=== PATIENT | female | born 1980 | race Hispanic/Latino ===

== ENCOUNTER 2016-11-24 16:31 | Emergency (ER) | payer OTHER ==
[~2016-11-24] VITALS: Ht 165.1 cm; Wt 81.6 kg
--- NOTE | 2016-11-24 16:51 | ED HEAD/FACIAL INJ COMPLAINT ---
History of Present Illness General Chief Complaint: Dizziness Stated Complaint: S/P FALL 15 MINUTES AGO. DIZZINESS/LAC TO R EYE Source: patient, old records Exam Limitations: no limitations Vital Signs & Intake/Output Vital Signs & Intake/Output Vital Signs Date Time Temp Pulse Resp B/P Pulse O2 O2 Flow FiO2 Ox Delivery Rate 11/24 1844 98.6 85 18 128/84 98 11/24 1634 97.4 80 18 137/82 99 Room Air Allergies Coded Allergies: Penicillins (ANAPHYLAXIS 09/17/16) erythromycin base (ANAPHYLAXIS 09/17/16) Reconcile Medications Cyclobenzaprine HCl 5 MG TABLET 1 TAB PO TIDPRN PRN pain Ibuprofen 800 MG TABLET 1 TAB PO TID PRN pain Triage Note: PT STATES THAT SHE WAS WALKING UP THE BASEMENT STAIRS AND THAT SHE TRIPPED AND HIT THE R SIDE OF HER FACE ON THE STEP, COMPLAINS OF PAIN TO R SIDE EYE AND R SIDE JAW PAIN Triage Nurses Notes Reviewed? yes Onset: Abrupt Severity: mild, moderate Severity Numbers: 5 Location: frontal Method of Injury: fall Loss of Consciousness: no loss of consciousness Associated Symptoms: denies : No Patient currently breastfeeds: No HPI: 36-year-old female presents to emergency room after she states she tripped while walking up her basement stairs sustaining abrasions to the right side of her face when she struck her head against the step. She now presents complaint right-sided facial pain. There is no loss of consciousness. She denies any neck or back pain. She states that she walked herself to the ER however is been feeling nauseous and dizzy. She is not taken anything for her symptoms. She denies any chest pain abdominal pain difficulty breathing no arm or leg pain no numbness or tingling. She denies any vomiting no vision changes. No dental trauma no epistaxis Past History Travel History Traveled to [place] past 21 day No Medical History Any Pertinent Medical History? 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 No Review of Systems Review of Systems Constitutional: Reports: see HPI. All Other Systems: Reviewed and Negative Comments Review of systems: See HPI, All other systems negative. Constitutional, no chills no fever, no malaise no weight loss HEENT: No visual changes no sore throat no congestion, no ear pain Cardiovascular: No chest pain , no palpitation Skin, no jaundice no rashes, no change in skin Respiratory: No dyspnea no cough no sputum GI: No nausea no vomiting, no diarrhea, no bloating/constipation : No dysuria Muscle skeletal: No joint pain, no joint swelling, no back pain, no neck pain, Neurologic: no headache Psych: No stress Heme/endocrine: No bruising no bleeding Immunology: No lymphadenopathy Physical Exam Physical Exam General Appearance: well developed/nourished, no apparent distress, alert, awake Cranial Nerves: normal hearing, normal speech, PERRL Comments: Well-developed well-nourished patient in no apparent distress. Head/Face: There are 2 superficial abrasions noted over the right lateral face, there is one that is approximately 2 cm long superficial oh active bleeding and a 0.5 cm superficial linear abrasion noted to the lateral right eyebrow. There is no ecchymosis or swelling no scalp hematoma, minimal tenderness over the right side of the patient's face no raccoon eyes no hernandez signs, no maxillary/ frontal sinus tenderness, no facial swelling Eyes: PERRL, EOMI, no conjunctival injection. No nystagmus no evidence of entrapment Ear:External auditory canal and Tympanic membranes clear, no erythema, no FB. No hemotympanum Nose: atraumatic.Normal inspection: No bleeding, no septal hematoma Throat: Moist mucous membranes.Pharynx normal. No dental trauma No swelling or edema. Neck: Supple, no lymphadenopathy, FROM Back: FROM, Nontender Cardiovascular: Regular rate and rhythms no murmurs rubs or gallops, Respiratory: Chest nontender.There were no bony deformities, no asymmetry. No respiratory distress. Patient speaking in full complete sentences. Breath sounds clear to auscultation bilaterally: NO W/R/R Extremities: full range of motion atraumatic Neuro: Alert and oriented x3 Skin: Warm & dry;No appreciable rash on exposed skin Psych: Mood affect normal, normal memory normal judgment. Progress Differential Diagnosis: c-spine injury, facial fracture, globe injury, ICH, orbit fracture, skull fracture Plan of Care: Orders Procedure Date/time Status Regular Diet 11/25 B Active HUMAN BETA HCG SCREEN 11/24 1659 Complete Laboratory Tests 11/24/16 1703: Total Beta HCG NEGATIVE Patient medicated with Tylenol and Zofran ODT, tetanus im ordered. Discussed the patient that there is nothing that I can suture given superficial abrasions they will heal on their own. Discussed with the patient her CAT scan results she is feeling better her prescription for Thursday Procrit and Flexeril were provided. They feel comfortable plan, patient is ambulatory with steady gait (MOHINI BEJARANO,IVONNE) Diagnostic Imaging: Viewed by Me: CT Scan. Discussed w/RAD: CT Scan. Radiology Impression: PATIENT: TARAN SHIRLEY PRESENT AGE: 36 PATIENT ACCOUNT NO: [id number] : 80 LOCATION: [facility] ORDERING PHYSICIAN: IVONNE BEJARANO SERVICE DATE: 11/24/16-1725 EXAM TYPE: CAT - CT HEAD WO IV CONTRAST; CT MAXILLOFACIAL W/O CON EXAMINATION: CT HEAD WITHOUT CONTRAST CT FACIAL BONES WITHOUT CONTRAST CLINICAL INFORMATION: 36-year- old woman with fall downstairs and right-sided pain. COMPARISON: None. TECHNIQUE : Imaging was performed from the skull base to vertex without intravenous administration of contrast. In addition, helical noncontrast CT imaging was acquired through the facial bones and source images were reviewed along with axial reconstructions and sagittal and coronal MPRs. DLP: 1395 mGy-cm FINDINGS: HEAD: No intracranial mass, hemorrhage, or midline shift is visualized. The ventricles and sulci are age-appropriate. No extra-axial collections are identified. FACIAL BONES: There is no evidence of an acute facial bone fracture. There is polypoid circumferential cortical thickening seen in the maxillary sinuses, mild on the right and moderate on the left. There is mild mucosal thickening in the ethmoid air cells as well. No significant dental disease is visualized. The orbits are unremarkable in appearance. IMPRESSION: No acute intracranial process or discrete facial bone fracture. DICTATED BY: LUIS MARIN MD DATE/TIME DICTATED:11/24/161824 LITHOGRAPHIC PHOTOGRAPHER:MAGALIE DATE/TIME TRANSCRIBED:11/24/161824 CONFIDENTIAL, DO NOT COPY WITHOUT APPROPRIATE AUTHORIZATION. <Electronically signed in Other Vendor System> SIGNED BY: LUIS MARIN MD 11/24/16 1832 Departure Departure Disposition: HOME OR SELF CARE Condition: Stable Clinical Impression Primary Impression: Minor head injury without loss of consciousness Referrals: PATIENT HAS NO PRIMARY CARE DR (PCP/Family) Additional Instructions: Rest ice and Tylenol Motrin as needed for pain. flexeril as discussed. follow up with your primary care physician or return with any concerns Departure Forms: Customer Survey General Discharge Information Prescriptions: Current Visit Scripts Ibuprofen 1 TAB PO TID PRN pain #30 TAB Cyclobenzaprine HCl 1 TAB PO TIDPRN PRN pain #12 TAB
[2016-11-24] MEDS ORDERED: IBUPROFEN800 M1 PO (18:08)
[2016-11-24] MEDS ORDERED: CYCLOBENZAPRINE5 M2 PO (18:08)
--- NOTE | 2016-11-24 18:32 | CT SCAN REPORT ---
EXAMINATION: CT HEAD WITHOUT CONTRAST CT FACIAL BONES WITHOUT CONTRAST CLINICAL INFORMATION: 36-year-old woman with fall downstairs and right-sided pain. COMPARISON: None. TECHNIQUE: Imaging was performed from the skull base to vertex without intravenous administration of contrast. In addition, helical noncontrast CT imaging was acquired through the facial bones and source images were reviewed along with axial reconstructions and sagittal and coronal MPRs. DLP: 1395 mGy-cm FINDINGS: HEAD: No intracranial mass, hemorrhage, or midline shift is visualized. The ventricles and sulci are age-appropriate. No extra-axial collections are identified. FACIAL BONES: There is no evidence of an acute facial bone fracture. There is polypoid circumferential cortical thickening seen in the maxillary sinuses, mild on the right and moderate on the left. There is mild mucosal thickening in the ethmoid air cells as well. No significant dental disease is visualized. The orbits are unremarkable in appearance. IMPRESSION: No acute intracranial process or discrete facial bone fracture.
[2016-11-24 18:44] VITALS: BP 128/84
== END 2016-11-24 18:44 ==
LOC: ERH 16:31
DX: S09.90XA Unspecified injury of head, initial encounter (principal); W18.09XA Striking against other object with subsequent fall, initial encounter
CPT/HCPCS: 90471; 90714; J3101

== ENCOUNTER 2016-11-25 18:22 | Emergency (ER) | payer OTHER ==
[~2016-11-25] VITALS: Ht 165.1 cm; Wt 81.6 kg
[~2016-11-25 18:22] MED LIST: CYCLOBENZAPRINE5 M2 PO; IBUPROFEN800 M1 PO
[2016-11-25 18:45] VITALS: BP 119/84
[2016-11-26] MEDS ORDERED: PROAIR HFA8.5 GM INH (08:35)
[2016-11-26] MEDS ORDERED: VICODIN 5-3001 EACH PO (08:59)
== END 2016-11-25 19:33 | disposition admitted as inpatient to this hospital (09) ==
LOC: ERH 18:22
DX: R51 Headache (principal); W19.XXXD Unspecified fall, subsequent encounter

== ENCOUNTER 2016-11-26 07:02 | Emergency (ER) | payer OTHER ==
[~2016-11-26] VITALS: Ht 162.6 cm; Wt 81.6 kg
--- NOTE | 2016-11-26 07:51 | ED NECK/BACK PAIN COMPLAINT ---
History of Present Illness General Chief Complaint: General Adult Stated Complaint: SUAZO/BACK&NECK PAIN Source: patient, old records Exam Limitations: no limitations Vital Signs & Intake/Output Vital Signs & Intake/Output Vital Signs Date Time Temp Pulse Resp B/P Pulse O2 O2 Flow FiO2 Ox Delivery Rate 11/26 0935 98.4 84 18 108/74 11/26 0709 98.6 94 20 137/97 98 Room Air Allergies Coded Allergies: Penicillins (ANAPHYLAXIS 11/25/16) erythromycin base (ANAPHYLAXIS 11/25/16) Reconcile Medications Albuterol Sulfate (Proair Hfa) 90 MCG HFA.AER.AD 2 PUF INH Q4-6 PRN PRN BREATHING (Reported) Cyclobenzaprine HCl 5 MG TABLET 1 TAB PO TIDPRN PRN pain Hydrocodone/Acetaminophen (Vicodin 5-300 MG Tablet) 5 MG-300 MG TABLET 1 TAB PO BID PRN PAIN Ibuprofen 800 MG TABLET 1 TAB PO TID PRN pain Triage Note: PT STATES SHE FELL 2 DAYS AGO AND CAME HERE AND WAS TOLD SHE HAS A CONCUSSION. PT STATES SHE HAS PAIN IN THE RIGHT SIDE OF HER HEAD, LEFT SIDE OF NECK AND LEFT SIDE OF BACK Triage Nurses Notes Reviewed? yes Onset: Abrupt Duration: day(s): (2) Timing: multiple episodes today Quality/Severity: moderate Location: C-spine, lumbar spine, RIGHT FACE, RIGHT EYE Loss of Consciousness: no loss of consciousness Modifying Factors: movement Associated Symptoms: muscle spasm : No Patient currently breastfeeds: No HPI: This is a 36-year-old female who presents to the ER with chief complaint of right-sided headache, neck pain and back pain status post falling while going up the stairs 2 days ago. She was seen here that day and CAT scans done that show any fracture or bleed. She was sent home with Flexeril and Motrin which she's been taking [id number] without relief. She states that she can't sleep because if she lies on her left side she has neck pain and if she lies on her right side she has headache. Pain is worse with range of motion. She states the medications to start helping her. No vomiting. No confusion. No ataxia. Past History Travel History Traveled to [place] past 21 day No Medical History Any Pertinent Medical History? 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 No Review of Systems Review of Systems Constitutional: Denies: chills, fever. Eyes: Reports: no symptoms. Ears, Nose, Throat, Mouth: Reports: no symptoms. Respiratory: Denies: cough. Cardiovascular: Denies: chest pain, palpitations. Gastrointestinal/Abdominal: Reports: no symptoms. Musculoskeletal: Reports: back pain, muscle pain, muscle stiffness, neck pain. Skin: Reports: see HPI (BRUISING). Neurological/Psychological: Reports: no symptoms. All Other Systems: Reviewed and Negative Physical Exam Physical Exam General Appearance: well developed/nourished, alert, awake, mild distress Head: atraumatic Eyes: Bilateral: PERRL, EOMI. Ears, Nose, Throat, Mouth: hearing grossly normal Neck: normal inspection, limited range of motion, paraspinous muscle tender Respiratory: normal breath sounds Cardiovascular: regular rate/rhythm Peripheral Pulses: 2+ radial (R), 2+ radial (L) Gastrointestinal: soft, non-tender Back: normal inspection Extremities: normal range of motion Neurologic/Psych: awake, alert, oriented x 3, normal mood/affect Skin: intact, normal color, warm/dry Progress Differential Diagnosis: herniated disc, myofascial strain, CONCUSSION Plan of Care: Current Medications Sig/Mayo Start time Last Medication Dose Stop Time Status Admin Diazepam 2 MG ONCE ONE 11/26 799 AC (Valium) 11/26 800 Oxycodone/ 1 TAB ONCE ONE 11/26 799 AC Acetaminophen 11/26 800 (Percocet) SOME RELIEF AFTER PO MEDS. IM TORADOL ORDERED. (JAVON VELASQUEZ,LEIF) Departure Departure Disposition: HOME OR SELF CARE Condition: Stable Clinical Impression Primary Impression: Neck strain Referrals: PATIENT HAS NO PRIMARY CARE DR (PCP/Family) Additional Instructions: Continue the ibuprofen and Flexeril. Take the Vicodin for breakthrough pain. Only take the Vicodin if you have somebody else to help watch her child. Do not drive with this medication. Follow up with her doctor in the office. Departure Forms: Customer Survey General Discharge Information Prescriptions: Current Visit Scripts Hydrocodone/Acetaminophen (Vicodin 5-300 MG Tablet) 1 TAB PO BID PRN PAIN #10 TAB
[2016-11-26] MEDS ORDERED: PROAIR HFA8.5 GM INH (08:35)
[2016-11-26] MEDS ORDERED: VICODIN 5-3001 EACH PO (08:59)
[2016-11-26 09:35] VITALS: BP 108/74
== END 2016-11-26 09:00 ==
LOC: ERH 07:02
DX: S16.1XXA Strain of muscle, fascia and tendon at neck level, initial encounter (principal); W10.9XXA Fall (on) (from) unspecified stairs and steps, initial encounter
CPT/HCPCS: 96372; J1885

== ENCOUNTER 2016-11-27 12:48 | Emergency (ER) | payer OTHER ==
[~2016-11-27] VITALS: Ht 165.1 cm; Wt 82.1 kg
[~2016-11-27 12:48] MED LIST changes: +PROAIR HFA8.5 GM INH; +VICODIN 5-3001 EACH PO
--- NOTE | 2016-11-27 15:39 | ED MVC/FALL/TRAUMA COMPLAINT ---
History of Present Illness General Chief Complaint: General Adult Stated Complaint: L SIDED LOWER BACK PAIN/R SIDED NECK PAIN Source: patient, family, old records Exam Limitations: no limitations Vital Signs & Intake/Output Vital Signs & Intake/Output Vital Signs Date Time Temp Pulse Resp B/P Pulse O2 O2 Flow FiO2 Ox Delivery Rate 11/27 1730 98.3 68 18 136/69 100 Room Air 11/27 1543 98.0 76 16 155/72 100 Room Air 11/27 1506 94 Room Air 11/27 1254 97.8 75 18 131/85 99 Room Air Allergies Coded Allergies: Penicillins (ANAPHYLAXIS 11/25/16) erythromycin base (ANAPHYLAXIS 11/25/16) Reconcile Medications Albuterol Sulfate (Proair Hfa) 90 MCG HFA.AER.AD 2 PUF INH Q4-6 PRN PRN BREATHING (Reported) Cyclobenzaprine HCl 5 MG TABLET 1 TAB PO TIDPRN PRN pain Hydrocodone/Acetaminophen (Vicodin 5-300 MG Tablet) 5 MG-300 MG TABLET 1 TAB PO BID PRN PAIN Ibuprofen 800 MG TABLET 1 TAB PO TID PRN pain Triage Note: PT BIBA FROM DR. FOSTER[facility] ([facility]) FOR LOWER RIGHT EXTREMITY NUMBNESS AND LOSS OF SENSATION. NO RELIEF OF BACK/NECK PAIN WITH VICODIN. ALSO C/O BLURRY VISION. ALSO HAS NUMBNESS ON RIGHT SIDE OF FACE. Triage Nurses Notes Reviewed? yes Onset: Abrupt Duration: day(s): (3), constant Timing: recent history Severity: moderate Severity Numbers: 7 Injuries/Fall Location: face, back Method of Injury: fall Loss of Consciousness: no loss of consciousness No Modifying Factors: none Associated Symptoms: numbness to face per pt : No Patient currently breastfeeds: No HPI: 36-year-old female presents to the emergency room after being seen here 3 days ago and again yesterday complaining of right-sided facial numbness pain and left lower back pain after she had a fall while walking up the stairs of her basement for which she was seen here and had unremarkable CAT scans. She seen here yesterday was prescribed Vicodin which she's been taking however reports it is not helping with her pain. She states that her primary care physician sent her in today to have an MRI performed of her head as she was having numbness to right side of her face and blurry vision. No fever no chills no nausea vomiting chest pain she denies any arm right-sided back or leg pain. No urinary or bowel contents. Past History Travel History Traveled to [place] past 21 day No Medical History Any Pertinent Medical History? 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 No Review of Systems Review of Systems Constitutional: Reports: see HPI. All Other Systems: Reviewed and Negative Comments Review of systems: See HPI, All other systems negative. Constitutional, no chills no fever, no malaise HEENT: No visual changes no sore throat no congestion, no ear pain Cardiovascular: No chest pain , no palpitation , no orthopnea no ankle swelling Skin, no rashes, no change in skin Respiratory: No dyspnea no cough no sputum GI: No nausea no vomiting, no diarrhea, : No dysuria No hematuria, no frequency, Muscle skeletal: No joint pain, no joint swelling, back pain, no neck pain, Neurologic: numbness no confusion, n headache Psych: No stress no anxiety no depression,. Heme/endocrine: No bruising no bleeding Immunology: No lymphadenopathy, Physical Exam Physical Exam General Appearance: well developed/nourished, no apparent distress, alert, awake , comfortable Comments: Well-developed well-nourished person in no acute distress HEENT: Normal EENT exam; PERRL, EOMI, no nystagmus. HEAD is atraumatic. moist mucous membranes. The abrasions that were noted during my evaluation 3 days ago have since resolved there is no surrounding ecchymosis there is no periorbital erythema or swelling, tenderness O patient of the right side of her face sensation is intact Neck: Supple, normal range of motion without pain or tenderness Back: Left sided paralumbar muscle tenderness on palpation of midline tenderness atraumatic no signs of trauma no CVA tenderness. Full range of motion Cardiovascular: Regular rate and rhythms no murmurs rubs or gallops, normal JVP Respiratory: Chest nontender.There were no bony deformities, no asymmetry. No respiratory distress. Patient speaking in full complete sentences. Breath sounds clear to auscultation bilaterally: NO W/R/R Abdomen: Soft, nontender nondistended, no appreciable organomegaly. Normal bowel sounds. No rebound/guarding, Extremity: No edema, full range of motion of extremities, normal and equal pulses bilaterally, 5 out of 5 strength noted to bilateral upper and lower extremities Neuro: Alert oriented x3, motor sensory normal, cranial nerves II through XII grossly intact. There were no obvious focal neurologic abnormalities. Skin: No appreciable rash on exposed skin, skin is warm and dry. Psych: Mood and affect is normal, memory and judgment is normal. Core Measures ACS in differential dx? No Severe Sepsis Present: No Septic Shock Present: No Progress Differential Diagnosis: C/T/L spine injury, ext injury, ICH, spinal cord injury Plan of Care: Orders Procedure Date/time Status XRY-LUMBOSACRAL SPINE AP & LAT 11/27 1606 Active Current Medications Sig/Mayo Start time Last Medication Dose Stop Time Status Admin Hydromorphone HCl 1 MG ONCE ONE 11/27 1729 UNVr (Dilaudid) 11/27 1730 Old records including patient's previous CAT scans were once again reviewed. Patient medical with Toradol 30 IV Percocet times one Valium tby mouth MRI x-ray ordered Discussed with the patiently follow her MRI x-ray results needfor supportive care to continue the Vicodin and Flexeril she has at home follow-up with her primary care physician this week return anytime sooner with any concerns answered all their questions patient clinically appears well at discharge (MOHINI BEJARANO,IVONNE) Diagnostic Imaging: Viewed by Me: Radiology Read, MRI. Discussed w/RAD: Radiology Read, MRI. Radiology Impression: PATIENT: TARAN SHIRLEY PRESENT AGE: 36 PATIENT ACCOUNT NO: [id number] : 80 LOCATION: [facility] ORDERING PHYSICIAN: IVONNE BEJARANO SERVICE DATE: 11/27/16 EXAM TYPE: RAD - XRY-LUMBOSACRAL SPINE AP & LAT EXAMINATION: XR LUMBOSACRAL SPINE CLINICAL INFORMATION: 36-year-old female patient with trauma to back. Pain. COMPARISON: None. TECHNIQUE: 2 views of the LS-spine. FINDINGS: The vertebral bodies and posterior elements are normal. The disc spaces are preserved and the vertebral alignment is normal. The paraspinal soft tissues are normal. IMPRESSION: Unremarkable examination. DICTATED BY: RICHIE WHITTAKER MD DATE/TIME DICTATED: 11/27/161727 [employer] INFORMATION CLERK:MAGALIE DATE/TIME TRANSCRIBED:11/27/161727 CONFIDENTIAL, DO NOT COPY WITHOUT APPROPRIATE AUTHORIZATION. <Electronically signed in Other Vendor System> SIGNED BY: RICHIE WHITTAKER MD 11/27/161732, PATIENT: TARAN SHIRLEY PRESENT AGE: 36 PATIENT ACCOUNT NO: [id number] : 80 LOCATION: [facility] ORDERING PHYSICIAN: IVONNE BEJARANO SERVICE DATE: 11/27/16 EXAM TYPE: MRI - MRI-HEAD W/O JACKY EXAMINATION: MR BRAIN WITHOUT CONTRAST CLINICAL INFORMATION: Right vision changes and right lower extremity numbness. COMPARISON: CT scan of the head 07/2017. TECHNIQUE: MRI of the brain without contrast was obtained using routine sequences. FINDINGS: No diffusion abnormalities are identified to suggest an acute or subacute infarct. No mass effect or midline shift is seen. The ventricles are normal in size. Parenchymal signal is unremarkable. No extra- axial fluid collections are seen. The brainstem and cerebellum are normal. No pathologic magnetic susceptibility artifact is identified on the gradient refocused acquisition. The craniovertebral junction, marrow signal, and midline structures are normal. The major intracranial flow-voids at the level of the [place] of [place] are preserved. The dural venous sinus flow-voids are maintained. The mastoid air cells are well-aerated. There is moderate mucoperiosteal thickening in the inferior maxillary sinuses bilaterally and in the left ethmoid air cells. There is a retention cyst in the right sphenoid sinus. IMPRESSION: 1. There are no acute bleeds or infarcts. 2. There are paranasal sinus changes as described. DICTATED BY: LONNY ELLIS MD DATE/TIME DICTATED:11/27/161703 [employer] INFORMATION CLERK:MAGALIE DATE/TIME TRANSCRIBED:1703 CONFIDENTIAL, DO NOT COPY WITHOUT APPROPRIATE AUTHORIZATION. < Electronically signed in Other Vendor System> SIGNED BY: LONNY ELLIS MD 1712 Departure Departure Disposition: HOME OR SELF CARE Condition: Stable Clinical Impression Primary Impression: Post concussive syndrome Secondary Impressions: Low back strain Referrals: PATIENT HAS NO PRIMARY CARE DR (PCP/Family) Additional Instructions: Follow-up with your primary care physician next week continue taking the pain medication that was prescribed to during her previous visits for pain in her change ice and heat to the areas that are bothering you. Departure Forms: Customer Survey General Discharge Information
--- NOTE | 2016-11-27 17:13 | MRI REPORT ---
EXAMINATION: MR BRAIN WITHOUT CONTRAST CLINICAL INFORMATION: Right vision changes and right lower extremity numbness. COMPARISON: CT scan of the head 11/24/2016. TECHNIQUE: MRI of the brain without contrast was obtained using routine sequences. FINDINGS: No diffusion abnormalities are identified to suggest an acute or subacute infarct. No mass effect or midline shift is seen. The ventricles are normal in size. Parenchymal signal is unremarkable. No extra-axial fluid collections are seen. The brainstem and cerebellum are normal. No pathologic magnetic susceptibility artifact is identified on the gradient refocused acquisition. The craniovertebral junction, marrow signal, and midline structures are normal. The major intracranial flow-voids at the level of the [place] are preserved. The dural venous sinus flow-voids are maintained. The mastoid air cells are well-aerated. There is moderate mucoperiosteal thickening in the inferior maxillary sinuses bilaterally and in the left ethmoid air cells. There is a retention cyst in the right sphenoid sinus. IMPRESSION: 1. There are no acute bleeds or infarcts. 2. There are paranasal sinus changes as described.
[2016-11-27 17:30] VITALS: BP 136/69
--- NOTE | 2016-11-27 17:33 | RADIOLOGY REPORT ---
EXAMINATION: XR LUMBOSACRAL SPINE CLINICAL INFORMATION: 36-year-old female patient with trauma to back. Pain. COMPARISON: None. TECHNIQUE: 2 views of the LS-spine. FINDINGS: The vertebral bodies and posterior elements are normal. The disc spaces are preserved and the vertebral alignment is normal. The paraspinal soft tissues are normal. IMPRESSION: Unremarkable examination.
== END 2016-11-27 17:52 ==
LOC: ERH 12:48
DX: S39.012A Strain of muscle, fascia and tendon of lower back, initial encounter (principal); F07.81 Postconcussional syndrome; W19.XXXA Unspecified fall, initial encounter
CPT/HCPCS: 70551; 72100; 96372; J1885

== ENCOUNTER 2016-12-09 14:56 | Emergency (ER) | payer OTHER ==
[~2016-12-09] VITALS: Ht 165.1 cm; Wt 82.1 kg
--- NOTE | 2016-12-09 16:49 | ED HEADACHE COMPLAINT ---
History of Present Illness General Chief Complaint: Headache Stated Complaint: HEADACHE Source: patient, family, old records Exam Limitations: no limitations Vital Signs & Intake/Output Vital Signs & Intake/Output Vital Signs Date Time Temp Pulse Resp B/P Pulse O2 O2 Flow FiO2 Ox Delivery Rate 12/09 1710 Room Air Room Air 12/09 1500 96.3 81 18 124/83 99 Room Air Allergies Coded Allergies: Penicillins (ANAPHYLAXIS 11/25/16) erythromycin base (ANAPHYLAXIS 11/25/16) shellfish derived (ANAPHYLAXIS 12/09/16) Reconcile Medications Albuterol Sulfate (Proair Hfa) 90 MCG HFA.AER.AD 2 PUF INH Q4-6 PRN PRN BREATHING (Reported) Biotin (Unknown Strength) CAPSULE (Unknown Dose) PO DAILY SUPPLEMENT ( Reported) Cyclobenzaprine HCl 5 MG TABLET 1 TAB PO TIDPRN PRN pain Ibuprofen 800 MG TABLET 1 TAB PO TID PRN pain Sumatriptan Succinate (Imitrex) 50 MG TABLET 1 TAB PO AD PRN MIGRAINES ( Reported) Triage Note: 36 Y/O FEMALE C/O MIGRAINE HEADACHE AND BACK PAIN; ALSO C/O NAUSEA. STATES SHE HAS BEEN HAVING "TWITCHING" ON THE FACE WHICH HER DOCTOR TOLD HER MIGHT BECOME A SEIZURE. HAD A CONCUSSION 3 WEEKS AGO AND HAS BEEN FEELING SICK SINCE. TOOK MOTRIN, FLEXERIL AND HEADACHE MEDICATION AT 0700 WITH NO RELIEF. TEARFUL IN TRIAGE. SPEAKING WITH NO DEFICITS NOTED. +PHOTOPHOBIA Triage Nurses Notes Reviewed? yes Onset: Morning Duration: hour(s):, constant, continues in ED Timing: recent history Quality/Severity: severe, throbbing Head Injury Location: frontal No Modifying Factors: none Associated Symptoms: nausea/vomiting, photophobia : No Patient currently breastfeeds: No HPI: Patient awoke with frontal migraine headache nausea and photophobia not relieved with usual medications. She denies fever chills diarrhea abdominal pain chest pain cough shortness of breath dysuria rash bleeding. Past History Travel History Traveled to [place] past 21 day No Medical History Any Pertinent Medical History? 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 No Review of Systems Review of Systems Constitutional: Reports: no symptoms. Eyes: Reports: no symptoms. Ears, Nose, Throat, Mouth: Reports: no symptoms. Respiratory: Reports: no symptoms. Cardiovascular: Reports: no symptoms. Gastrointestinal/Abdominal: Reports: see HPI, nausea, vomiting. Genitourinary: Reports: no symptoms. Musculoskeletal: Reports: no symptoms. Skin: Reports: no symptoms. Neurological/Psychological: Reports: see HPI, headache. Hematologic/Endocrine: Reports: no symptoms. Endocrine: Reports: no symptoms. Immunologic/Allergic: Reports: no symptoms. All Other Systems: Reviewed and Negative Physical Exam Physical Exam General Appearance: well developed/nourished, alert, awake, anxious, moderate distress, obese Head: atraumatic, normal appearance Eyes: Bilateral: normal appearance, PERRL, EOMI. Ears, Nose, Throat: normal pharynx, normal ENT inspection Neck: normal inspection, supple, full range of motion, no midline tenderness Respiratory: normal breath sounds, chest non-tender, no respiratory distress, quiet respiration, lungs clear Cardiovascular: regular rate/rhythm, normal peripheral pulses, norml femoral pulses equa Gastrointestinal: normal bowel sounds, soft, non-tender, no organomegaly Back: normal inspection, normal range of motion, no vertebral tenderness Extremities: normal inspection, normal capillary refill, normal range of motion, no edema Psychiatric: awake, alert, oriented x 3 Cranial Nerves: normal hearing, normal speech, PERRL Coordination/Gait: normal finger to nose, normal gait Motor/Sensory: no motor/sensory deficits Reflexes: 2+: bicep (R), bicep (L), tricep (R), tricep (L). Skin: intact, normal color Lymphatic: no anterior cervical tevin Core Measures Severe Sepsis Present: No Septic Shock Present: No Progress Differential Diagnosis: cluster SUAZO, migraine SUAZO, tension SUAZO Plan of Care: Current Medications Sig/Mayo Start time Last Medication Dose Stop Time Status Admin Ketorolac 30 MG ONCE ONE 12/09 1644 UNVr Tromethamine 12/09 164 (Toradol) Metoclopramide HCl 10 MG ONCE ONE 12/09 1644 UNVr (Reglan) 12/09 1645 Morphine Sulfate 4 MG ONCE ONE 01/24 1645 UNVr (Morphine) 12/09 1646 Sodium Chloride 1,000 ML BOLUS ONE 12/09 1645 UNVr (Normal Saline 0.9%) 12/09 1744 Comments: Feels better after interventions Departure Departure Time of Disposition: 1836 Disposition: HOME OR SELF CARE Condition: Stable Clinical Impression Primary Impression: Migraine headache Qualifiers: Migraine type: unspecified Status migrainosus presence: without status migrainosus Intractability: not intractable Qualified Code: G43.909 - Migraine, unspecified, not intractable, without status migrainosus Referrals: PATIENT HAS NO PRIMARY CARE DR (PCP/Family) Departure Forms: Customer Survey General Discharge Information RELEASE- WORK Prescriptions: Current Visit Scripts Butalb/Acetaminophen/Caffeine (Fioricet 50-300-40 MG Capsule) 1-2 TAB PO Q6P PRN headache #30 TAB Baclofen 1-2 TAB PO TID PRN muscle strain #30 TAB
[2016-12-09] MEDS ORDERED: IMITREX50 M1 PO (17:17)
[2016-12-09] MEDS ORDERED: BIOTIN2500 MCG PO (17:18)
[2016-12-09] MEDS ORDERED: BACLOFEN10 M1 PO (18:38)
[2016-12-09] MEDS ORDERED: FIORICET 50-301 EACH PO (18:38)
[2016-12-09 19:04] VITALS: BP 139/74
== END 2016-12-09 19:07 ==
LOC: ERH 14:56
DX: G43.909 Migraine, unspecified, not intractable, without status migrainosus (principal); R11.2 Nausea with vomiting, unspecified
CPT/HCPCS: 96374; 96375; J1885; J2765

== ENCOUNTER 2016-12-17 19:45 | Emergency (ER) | payer OTHER ==
[~2016-12-17 19:45] MED LIST changes: +BACLOFEN10 M1 PO; +BIOTIN2500 MCG PO; +FIORICET 50-301 EACH PO; +IMITREX50 M1 PO
--- NOTE | 2016-12-17 21:00 | ED HEADACHE COMPLAINT ---
History of Present Illness General Chief Complaint: Headache Stated Complaint: "BIBA PER EMS MIGRAINE" Source: patient, old records, EMS Exam Limitations: no limitations Vital Signs & Intake/Output Vital Signs & Intake/Output Vital Signs Date Time Temp Pulse Resp B/P Pulse O2 O2 Flow FiO2 Ox Delivery Rate 12/17 2301 97.8 61 18 123/73 100 Room Air 12/17 2154 Room Air 12/17 1954 97.9 22 97 Allergies Coded Allergies: Penicillins (ANAPHYLAXIS 11/25/16) erythromycin base (ANAPHYLAXIS 11/25/16) shellfish derived (ANAPHYLAXIS 12/09/16) Reconcile Medications Albuterol Sulfate (Proair Hfa) 90 MCG HFA.AER.AD 2 PUF INH Q4-6 PRN PRN BREATHING (Reported) Baclofen 10 MG TABLET 1-2 TAB PO TID PRN muscle strain Biotin (Unknown Strength) CAPSULE (Unknown Dose) PO DAILY SUPPLEMENT ( Reported) Butalb/Acetaminophen/Caffeine (Fioricet 50-300-40 MG Capsule) 50 MG-300 MG-40 MG CAPSULE 1 TAB PO Q6HR PRN HEADACHE Butalb/Acetaminophen/Caffeine (Fioricet 50-300-40 MG Capsule) 50 MG-300 MG-40 MG CAPSULE 1-2 TAB PO Q6P PRN headache Cyclobenzaprine HCl 5 MG TABLET 1 TAB PO TIDPRN PRN pain Ibuprofen 800 MG TABLET 1 TAB PO TID PRN pain Ondansetron (Zofran Odt) 4 MG TAB.RAPDIS 1 TAB SL TID PRN NAUSEA Sumatriptan Succinate (Imitrex) 50 MG TABLET 1 TAB PO AD PRN MIGRAINES ( Reported) Triage Note: PER PT HAD A CONCUSSION, 1 MONTH AGO. YESTERDAY STARTED WITH LIGHT SENSITIVITY, AND VOMITING PT REPORTS BEING IN ED YESTERDAY FOR DAUGHTER AND WAS VOMITING THEN BUT WAS NOT SEEN Triage Nurses Notes Reviewed? yes Onset: Abrupt Duration: day(s): (1), constant Timing: recent history Quality/Severity: moderate, achy, constant Severity Numbers: 6 Head Injury Location: frontal No Modifying Factors: none Associated Symptoms: photophobia, n/v : No Patient currently breastfeeds: No HPI: 36-year-old female with history of concussion sustained one month ago when she fell multiple times in the past month for chronic headaches nausea and vomiting presents to emergency room today for evaluation complaining of a generalized headache associated with photophobia, nausea and vomiting. She is not taken anything for her symptoms today. She denies any recent new injury or trauma she denies chest pain abdominal pain diarrhea. She denies any neck pain fever chills or no modifying factors or associated symptoms otherwise (IVONNE NEWELL) Past History Travel History Traveled to [place] past 21 day No Medical History Any Pertinent Medical History? 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 No (IVONNE NEWELL) Review of Systems Review of Systems Constitutional: Reports: see HPI. All Other Systems: Reviewed and Negative Comments Review of systems: See HPI, All other systems negative. Constitutional, no chills no fever, no malaise HEENT: No visual changes no sore throat no congestion, Cardiovascular: No chest pain , no palpitation , Skin, no rashes, no change in skin Respiratory: No dyspnea no cough no sputum GI: nausea vomiting, no diarrhea, n : No dysuria Muscle skeletal: No joint pain, no joint swelling, no back pain, no neck pain, Neurologic: No numbness no confusion, headache Psych: No stress n Heme/endocrine: No bruising no bleeding Immunology: No lymphadenopathy (IVONNE NEWELL) Physical Exam Physical Exam General Appearance: well developed/nourished, alert, awake, comfortable Cranial Nerves: normal hearing, normal speech, PERRL Comments: Well-developed well-nourished person in no acute distress HEENT: Normal EENT exam; PERRL, EOMI, no nystagmus. HEAD is atraumatic. moist mucous membranes. Neck: Supple, no lymphadenopathy, normal range of motion without pain or tenderness, negative Brudzinski sign Back: Nontender, no CVA tenderness. Full range of motion Cardiovascular: Regular rate and rhythms no murmurs rubs or gallops, normal JVP Respiratory: Chest nontender.There were no bony deformities, no asymmetry. No respiratory distress. Patient speaking in full complete sentences. Breath sounds clear to auscultation bilaterally: NO W/R/R Abdomen: Soft, nontender nondistended, no appreciable organomegaly. Normal bowel sounds. No rebound/guarding, No appreciable enlargement of the abdominal aorta, No ascites. Extremity: No edema, full range of motion of extremities, normal and equal pulses bilaterally, 5 out of 5 strength noted to bilateral upper and lower extremities Neuro: Alert oriented x3, motor sensory normal, cranial nerves II through XII grossly intact. There were no obvious focal neurologic abnormalities. Skin: No appreciable rash on exposed skin, skin is warm and dry. Psych: Mood and affect is normal, memory and judgment is normal. Core Measures Severe Sepsis Present: No Septic Shock Present: No (IVONNE NEWELL) Progress Differential Diagnosis: cluster SUAZO, IC mass/tumor, intracranial Hem., meningitis , migraine SUAZO, musculoskeletal pain, sinusitis, tension SUAZO Plan of Care: Patient medicated with Toradol 30 Benadryl 50 IV IV fluids patient resting in no apparent distress no vomiting noted at this time no meningeal signs, old records including patient's previous MRI CAT scan reviewed 2039 on repeat evaluation patient is sleeping however states her headache has improved she is tolerating by mouth challenge I discussed with her need to follow-up with her primary care physician prescription for fioricet and zofran provided. Advised return anytime sooner if any concerns she feels couple blankly for discharge (IVONNE NEWELL) Departure Departure Time of Disposition: 2237 Disposition: HOME OR SELF CARE Condition: Stable Clinical Impression Primary Impression: Headache Referrals: CRISTIAN VELASQUEZ,MABEL (PCP/Family) Additional Instructions: FOLLOW UP WITH YOUR PMD THIS WEEK. FIORICIET FOR HEADACHE AND ZOFRAN DIRECTED FOR NAUSEA. THESE PRESCRIPTIONS WERE SENT TO [facility] Departure Forms: Customer Survey General Discharge Information Prescriptions: Current Visit Scripts Butalb/Acetaminophen/Caffeine (Fioricet 50-300-40 MG Capsule) 1 TAB PO Q6HR PRN HEADACHE #12 TAB Ondansetron (Zofran Odt) 1 TAB SL TID PRN NAUSEA #10 TAB (IVONNE NEWELL) PA/DIRECTOR OF NURSES REGISTRY Co-Sign Statement Statement: ED Attending supervision documentation- [] I saw and evaluated the patient. I have also reviewed all the pertinent lab results and diagnostic results. I agree with the findings and the plan of care as documented in the PA's/DIRECTOR OF NURSES REGISTRY's documentation. [X] I have reviewed the ED Record and agree with the PA's/DIRECTOR OF NURSES REGISTRY's documentation. [] Additions or exceptions (if any) to the PAs/DIRECTOR OF NURSES REGISTRY's note and plan are summarized below: [] (JAVON VELASQUEZ,LEIF)
[2016-12-17] MEDS ORDERED: ZOFRAN ODT4 M1 SL (22:40)
[2016-12-17] MEDS ORDERED: FIORICET 50-301 EACH PO (22:40)
[2016-12-17 23:01] VITALS: BP 123/73
== END 2016-12-17 23:01 ==
LOC: ERH 19:45
DX: R51 Headache (principal)
CPT/HCPCS: 96365; 96375; J1200; J1885; J2765